=== PATIENT | male | born 1940 | race Caucasian/White ===

== ENCOUNTER 2021-02-20 02:42 | Emergency (ER) | payer MEDICARE ==
[~2021-02-20] VITALS: Ht 185.4 cm; Wt 70.9 kg
[2021-02-20 02:49] VITALS: BP 130/90
[2021-02-20] MEDS ORDERED: acetaminophen 325mg tablet PO ONE (04:45)
[2021-02-20] MEDS ORDERED: ONDA4TAB6 PO (05:14)
[2021-02-20] MEDS ORDERED: HYDR-3964 PO (05:14)
== END 2021-02-20 11:58 | disposition home or self-care (01) ==
LOC: ER 02:43
DX: S62.102A Fracture of unspecified carpal bone, left wrist, initial encounter for closed fracture (principal); S52.125A Nondisplaced fracture of head of left radius, initial encounter for closed fracture; Z79.899 Other long term (current) drug therapy; W01.0XXA Fall on same level from slipping, tripping and stumbling without subsequent striking against object, initial encounter; Y93.89 Activity, other specified; Y92.89 Other specified places as the place of occurrence of the external cause; Y99.8 Other external cause status
CPT/HCPCS: 29505; 73080; 73110; 99284

== ENCOUNTER 2023-01-20 09:37 | Day surgery (SDC) | payer MEDICARE ==
[2023-01-20] VITALS (12 sets, daily range): BP systolic 135–162; BP diastolic 80–107; PULSE 60–68; RESP 8–16; TEMP 97.9; O2SAT 97–100
[~2023-01-20] VITALS: Ht 180.3 cm; Wt 87.5 kg
[~2023-01-20 09:37] MED LIST: ONDA4TAB6 PO
[2023-01-20] MEDS ORDERED: fentaNYL/PF 50MCG/1 ML 2ML syringe IV ONE (10:10)
[2023-01-20] MEDS ORDERED: MIDAZolam 1mg/ml 10ml vial IV ONE (10:10)
[2023-01-20] MEDS ORDERED: normal saline 1000ml 1,000 ML IV SCH (10:10)
== END 2023-01-20 14:30 | disposition home or self-care (01) ==
LOC: SSTAY O 09:37
PROVIDERS: ATTEND Student in an Organized Health Care Education/Training Program
DX: I48.91 Unspecified atrial fibrillation (principal); I34.0 Nonrheumatic mitral (valve) insufficiency; Z79.01 Long term (current) use of anticoagulants; Z79.899 Other long term (current) drug therapy
CPT/HCPCS: 93312; 93325; 94760; J2250; J3010; J7030; A4620

== ENCOUNTER 2023-02-20 06:17 | Inpatient (IN) | payer MEDICARE ==
[2023-02-14 11:04] LABS: BASOPHILS # (AUTO) 0.1 X10'3 (0-0.2); BASOPHILS % (AUTO) 0.8 % (0-1); EOSINOPHILS # (AUTO) 0.1 X10'3 (0-0.9); LYMPHOCYTES # (AUTO) 1.6 X10'3 (1.1-4.8); MEAN CORPUSCULAR HGB CONC 33.6 g/dL (33.0-36.5); MEAN CORPUSCULAR VOLUME 92.2 FL (78-98); MEAN PLATELET VOLUME 8.3 FL (7.4-10.4); MONOCYTES # (AUTO) 0.6 X10'3 (0-0.9); MONOCYTES % (AUTO) 7.7 % (2-12); NEUTROPHILS % (AUTO) 67.5 % (42-75); PRE OP HEMATOCRIT 46.4 % (42.0-52.0); PRE OP HEMOGLOBIN 15.6 g/dL (14.0-17.9); PRE OP PLATELET COUNT 185 X10'3 (140-440); PRE OP WHITE BLOOD COUNT 7.5 10'3 (4.8-10.8); RED BLOOD COUNT 5.03 X10'6 (4.70-6.10); RED CELL DISTRIBUTION WIDTH 13.4 % (11.5-14.5)
[2023-02-14 11:07] LABS: BILIRUBIN,URINE NEGATIVE (Neg); CLARITY,URINE CLEAR (Clear); COLOR,URINE YELLOW (Yellow); GLUCOSE, URINE NEGATIVE (Neg); KETONES,URINE NEGATIVE (Neg); LEUKOCYTE ESTERASE ,URINE NEGATIVE (Neg); NITRITES, URINE NEGATIVE (Neg); OCCULT BLOOD,URINE TRACE-INTACT (Neg); PROTEIN,URINE NEGATIVE (Neg); UROBILINOGEN,URINE 0.2 E.U/dL (0.2-1.0)
[2023-02-14 11:10] LABS: UA COLLECTION TYPE VOIDED
[2023-02-14 11:15] LABS: BACTERIA,URINE FEW /HPF (Neg); MUCUS STRANDS NONE SEEN /LPF (Neg); RBC,URINE 0-2 /HPF (0-2); SQUAMOUS EPITHELIAL CELL,UR NONE SEEN /LPF (FEW); WBC,URINE 0-4 /HPF (0-4)
[2023-02-14 11:16] LABS: PRE OP INR 1.1 INR; PRE OP PROTIME 11.3 SECONDS (9.0-12.0)
[2023-02-14 11:29] LABS: ALBUMIN 3.4 G/DL (3.4-5.0); ALBUMIN/GLOBULIN RATIO 1.1 (1.1-1.5); ALKALINE PHOSPHATASE 95 IU/L (46-116); BLOOD UREA NITROGEN 27 MG/DL (7-18); BUN/CREATININE RATIO 29.7 (10.0-20.0); CALCIUM 9.5 MG/DL (8.5-10.1); CHLORIDE 108 MMOL/L (99-107); CREATININE 0.91 MG/DL (0.60-1.10); PRE OP ALT 20 U/L (30-65); PRE OP ANION GAP 6 (8-16); PRE OP AST 23 U/L (10-37); PRE OP BILIRUB, TOTAL 0.5 MG/DL (0.0-1.0); PRE OP GLUCOSE 101 MG/DL (70-104); PRE OP POTASSIUM 4.2 MMOL/L (3.4-5.1); PRE OP SODIUM 144 MMOL/L (135-145); TOTAL CARBON DIOXIDE 30.4 MMOL/L (24-32); TOTAL PROTEIN 6.4 G/DL (6.4-8.2); eGFR 80 ML/MIN
[~2023-02-20] VITALS: Ht 180.3 cm; Wt 85.5 kg
[2023-02-20] VITALS (14 sets, daily range): BP systolic 98–170; BP diastolic 65–96; PULSE 57–95; RESP 8–20; TEMP 97.3–97.7; O2SAT 91–100
[~2023-02-20 06:17] MED LIST changes: +APIX5TAB3 PO; +DOXY-225 PO; -ONDA4TAB6 PO; +cefazolin 2gm/D5W 100mL 100 ML IV ONE; +famotidine 20mg tablet PO ONE; +ondansetron/PF 4mg/2ml inj IV PRN; +ringers solution, lacted 1,000 ML IV SCH; +vancomycin 1,500 MG in NS 300ml IV soln IV ONE
[2023-02-20] MEDS ORDERED: hydrALAZINE 20mg/ml inj. IV PRN ×2 (07:40→15:00)
[2023-02-20] MEDS ORDERED: acetaminophen 1,000mg/100ml IV 100 ML IV PRN (07:40)
[2023-02-20] MEDS ORDERED: morphine 2 MG/ML inj. syringe IV PRN (07:40)
[2023-02-20] MEDS ORDERED: meperidine/PF 25mg/ml syringe IV PRN ×3 (07:40)
[2023-02-20] MEDS ORDERED: labetalol 20mg/4ml (5mg/ml) syringe IV PRN ×2 (07:40→15:00)
[2023-02-20] MEDS ORDERED: ondansetron/PF 4mg/2ml inj IV PRN ×2 (07:40→15:00)
[2023-02-20] MEDS ORDERED: ringers solution, lacted 1,000 ML IV SCH (07:40)
[2023-02-20] MEDS ORDERED: proCHLORperazine 10 MG/2 ml inj IV PRN ×2 (07:40→15:00)
[2023-02-20] MEDS ORDERED: morphine 4 MG/ML inj SYRINge IV PRN (07:40)
[2023-02-20] MEDS ORDERED: LIDOcaine 1% (10mg/ml) 2ml vial ONE (11:42)
[2023-02-20] MEDS ORDERED: protamine sulf. 10mg/ml inj. IV ONE (12:00)
[2023-02-20] MEDS ORDERED: iohexol 350MG/ML 100ml bottle IV ONE ×2 (12:01→14:05)
[2023-02-20] MEDS ORDERED: sevoflurane 250ml liquid IH ONE (12:08)
[2023-02-20] MEDS ORDERED: protamine sulfate 10mg/ml inj. ONE (12:14)
[2023-02-20] MEDS ORDERED: fentaNYL/PF 50MCG/1 ML 2ML syringe ONE ×2 (12:16→13:04)
[2023-02-20] MEDS ORDERED: midazolam 1 mg/ML 2ml injection ONE (12:17)
[2023-02-20] MEDS ORDERED: propofol inj 20 ML IV ONE (12:30)
[2023-02-20] MEDS ORDERED: rocuronium 10mg/ml inj IV ONE (12:30)
[2023-02-20] MEDS ORDERED: LIDOcaine 2% (20mg/ml) 5ml vial ONE (12:30)
[2023-02-20] MEDS ORDERED: heparin 1,000unit/ml 10ml vial 0 ML ONE (12:34)
[2023-02-20] MEDS ORDERED: ondansetron/PF 4mg/2ml inj ONE (12:40)
[2023-02-20] MEDS ORDERED: heparin 1,000unit/ml 10ml vial 10 ML ONE ×2 (12:40→13:31)
[2023-02-20] MEDS ORDERED: dexamethasone sod phosphate 4mg/ml inj. ONE (12:40)
[2023-02-20] MEDS ORDERED: ePHEDrine 50MG/ML INJ. ONE (13:17)
[2023-02-20] MEDS ORDERED: 0.9 % SODIUM CHLORIDE 10 ML VIAL ONE (13:17)
[2023-02-20] MEDS ORDERED: heparin 1,000 UNITS/NS 500ml 500 ML ONE (13:28)
[2023-02-20] MEDS ORDERED: glycopyrrolate 0.2mg/ml inj ONE (14:50)
[2023-02-20] MEDS ORDERED: neostigmine methylsulfate 1 MG/ML 10ml vial ONE (14:50)
[2023-02-20] MEDS ORDERED: docusate sod 100mg capsule PO PRN (15:00)
[2023-02-20] MEDS ORDERED: magnesium 4gm in 100ml NS 100 ML IV PRN (15:00)
[2023-02-20] MEDS ORDERED: diphenhydrAMINE 25mg capsule PO PRN (15:00)
[2023-02-20] MEDS ORDERED: acetaminophen 325mg tablet PO PRN (15:00)
[2023-02-20] MEDS ORDERED: potassium Cl 20mEq/100mL bag 100 ML IV PRN (15:00)
[2023-02-20] MEDS ORDERED: normal saline 1000ml 1,000 ML IV SCH (15:00)
[2023-02-20] MEDS ORDERED: potassium Cl 40MEQ/270ML bag 250 ML IV PRN (15:00)
[2023-02-20] MEDS ORDERED: potassium Cl 40MEQ/1/2NS 520ml 520 ML IV PRN (15:00)
[2023-02-20] MEDS ORDERED: potassium CL 10mEq/100ml bag 100 ML IV PRN (15:00)
[2023-02-20] MEDS ORDERED: pantoprazole 40mg Tablet.DR PO PRN (15:00)
[2023-02-20] MEDS ORDERED: ALPRAZolam 0.25mg tablet PO PRN (15:00)
[2023-02-20] MEDS ORDERED: potassium Cl 20 mEq SR tablet PO PRN (15:00)
[2023-02-20] MEDS ORDERED: magnesium 2GM in 50ml NS 50 ML IV PRN (15:00)
--- NOTE | 2023-02-20 15:07 | NUR ---
Received from OR via BED, accompanied by Anesthesiologist DR. CASTILLO and report given by Anesthesiologist AND OR NURSE. PT ARRIVED DROWSY BUT ABLE TO RESPOND TO VERBAL STIMULI ON 6 L OF 02 VIA MASK. VSS. PT HAS 18 G IV TO RIGHT FOREARM AND ART LINE TO RIGHT WRIST AND PRESSURE DEVICE INTACT. PT HAS DRESSING TO R GROIN THAT IS C/D/I, NO SWELLING OR BLEEDING NOTED. NEURO ASSESSMENT COMPLETED. PUSH, PULL, INCOMING FREIGHT CLERK, SMILE ALL WITHIN NORMAL LIMITS. BILATERAL PEDAL PULSES STRONG. VSS. WILL CONTINUE TO MONITOR AND RECHECK GROIN SITES. Addendum: 02/20/23 at 1525 by Juarez Lira RN Amended: Links added.
--- NOTE | 2023-02-20 15:35 | NUR ---
PULLED RIGHT ARTLINE. HEMOSTASIS OBTAINED AFTER 5 MINUTES. NO S/S OF HEMATOMA OR BLEEDING AT THIS TIME. APPLIED DRESSING ON RIGHT WRIST. PATIENT TOLERATED PROCEDURE WELL. NO S/S OF DISTRESS AT THIS TIME. Addendum: 02/20/23 at 1549 by Juarez Lira RN Amended: Links added.
--- NOTE | 2023-02-20 15:55 | NUR ---
Patient in room PAS IN 900. I have received report from Gurmeet TIMMONS and had the opportunity to ask questions and assume patient care.
[2023-02-20] MEDS ORDERED: sod chloride 0.9% 10ml flush syringe IV SCH (16:00)
--- NOTE | 2023-02-20 16:00 | NUR ---
TURNED STOPCOCK OPEN AND NO BLOOD OOZING FROM RIGHT GROIN SITE. DISCONTINUED FIGURE8 DRESSING AND APPLIED GAUZE AND TEGADERM. NO S/S OF BLEEDING OR HEMATOMA AT THIS TIME. WILL KEEP MONITORING.
--- NOTE | 2023-02-20 16:27 | NUR ---
PATIENT HAS MET ALL CRITERIA FOR TRANSFER TO PCU FLOOR. VSS. DRESSINGS INTACT. BED LOW, CALL LIGHT PRESENT AND 2 RAILS UP. RN PRESENT TO ACCEPT CARE OF PATIENT AND REPORT HAS BEEN CALLED. ALL QUESTIONS ANSWERED TO ACCEPTING RN. Addendum: 02/20/23 at 1633 by Juarez Lira RN Amended: Links added.
--- NOTE | 2023-02-20 18:18 | NUR ---
Patient in room PCU 3026. I have received report from clemente damon and had the opportunity to ask questions and assume patient care.
--- NOTE | 2023-02-20 18:27 | NUR ---
Problems reprioritized. Patient report given, questions answered & plan of care reviewed with Martha TERRY.
[2023-02-20] MEDS: apixaban 5mg tablet PO SCH (20:02)
[2023-02-21 02:00] VITALS: BP 99/64; PULSE 84; RESP 14; TEMP 97.1; O2SAT 91
--- NOTE | 2023-02-21 06:04 | NUR ---
FENCE SUPERVISOR documentation: I have reviewed and agree with all interventions, assessments performed and documented by Tammie. Addendum: 02/21/23 at 0604 by Rosa Keene RN Amended: Links added.
[2023-02-21 06:22] LABS: BASOPHILS % (AUTO) 0.3 % (0-1); EOSINOPHILS % (AUTO) 0.1 % (0-6); HEMATOCRIT 41.6 % (42.0-52.0); HEMOGLOBIN 14.1 g/dl (14.0-17.9); LYMPHOCYTES # (AUTO) 1.3 X10'3 (1.1-4.8); LYMPHOCYTES % (AUTO) 11.4 % (21-51); MEAN CORPUSCULAR HEMOGLOBIN 31.2 PG (27.0-31.0); MEAN CORPUSCULAR HGB CONC 33.9 g/dL (33.0-36.5); MEAN CORPUSCULAR VOLUME 92.1 FL (78-98); MEAN PLATELET VOLUME 8.3 FL (7.4-10.4); MONOCYTES # (AUTO) 0.9 X10'3 (0-0.9); MONOCYTES % (AUTO) 8.4 % (2-12); NEUTROPHILS # (AUTO) 8.9 X10'3 (1.8-7.7); NEUTROPHILS % (AUTO) 79.8 % (42-75); PLATELET COUNT 167 X10'3 (140-440); RED BLOOD COUNT 4.52 X10'6 (4.70-6.10); RED CELL DISTRIBUTION WIDTH 13.2 % (11.5-14.5); WHITE BLOOD COUNT 11.1 X10'3 (4.5-11.0)
[2023-02-21 06:25] LABS: INR 1.1 INR; PROTHROMBIN TIME 11.9 SECONDS (9.0-12.0)
--- NOTE | 2023-02-21 06:31 | NUR ---
Problems reprioritized. Patient report given, questions answered & plan of care reviewed with robe damon.
[2023-02-21 06:46] LABS: ALANINE AMINOTRANSFERASE 18 U/L (12-78); ALBUMIN 2.9 G/DL (3.4-5.0); ALBUMIN/GLOBULIN RATIO 1.1 (1.1-1.5); ALKALINE PHOSPHATASE 77 IU/L (46-116); ANION GAP 4 (8-16); ASPARTATE AMINO TRANSFERASE 21 U/L (10-37); BILIRUBIN,TOTAL 0.7 MG/DL (0.1-1.0); BLOOD UREA NITROGEN 22 MG/DL (7-18); BUN/CREATININE RATIO 19.8 (10.0-20.0); CALCIUM 8.8 MG/DL (8.5-10.1); CHLORIDE 108 MMOL/L (99-107); CREATININE 1.11 MG/DL (0.60-1.10); GLUCOSE 125 MG/DL (70-104); MAGNESIUM 1.6 MG/DL (1.5-2.4); PRO BRAIN NATRIURETIC PEPTIDE 390 PG/ML (0-450); SODIUM 141 MMOL/L (135-145); TOTAL CARBON DIOXIDE 28.8 MMOL/L (24-32); TOTAL PROTEIN 5.5 G/DL (6.4-8.2); eCRCL 57 ML/MIN; eGFR 64 ML/MIN
[2023-02-21 07:00] VITALS: BP_SYST 0; BP_SYST 133; BP_DIAS 85; PULSE 68; RESP 16; TEMP 97.4; O2SAT 96
[2023-02-21] MEDS: apixaban 5mg tablet PO SCH (08:00)
--- NOTE | 2023-02-21 08:55 | NUR ---
PATIENT WALKED 300FT NO COMPLICATIONS . HR STAYED UNDER 100. NO NEED FOR O2 . PATIENT TOLERATED IT WELL. GROIN SITE DRESSING IS CDI, NO HEMATOMA, NO BRUISING, NO ISSUES NOTED. PERIPHERAL PULSES AND SENSATION INTACT.
[2023-02-21 09:08] VITALS: RESP 16; O2SAT 96
--- NOTE | 2023-02-21 09:56 | NUR ---
REPORT GIVEN TO JUAN TIMMONS. PATIENT IS DOING GREAT AND READY TO GO HOME PENDING EKG AND ECHO REVIEW
--- NOTE | 2023-02-21 12:27 | NUR ---
PATIENT WAS DC TO HOME . PIV WAS REMOVE WITH CANNULA INTACT. NO NEW RX . DC INSTRUCTIONS AND WARNING S/S WERE DISCUSSED WITH THE PATIENT AND HE VERBALIZED UNDERSTANDING. ALL QUESTIONS WERE ANSWERED TO SATISFACTION. PATIENT WAS WHEELED TO FRONT OF HOSPITAL AND GOT INTO PRIVATE VEHICLE WITH FRIEND PATIENT WAS ALERT, ORIENTED AND APPROPRIATE AT TIME OF DC.
== END 2023-02-21 12:20 | disposition home or self-care (01) | DRG 274 ==
LOC: PAS IN 06:17 → PCU 3S 16:24
PROVIDERS: ADMIT Student in an Organized Health Care Education/Training Program; ATTEND Student in an Organized Health Care Education/Training Program
PROC: B24BZZ4 Ultrasonography of Heart with Aorta, Transesophageal (ICD-10-PCS; 2023-02-20)
PROC: B44FZZZ Ultrasonography of Right Lower Extremity Arteries (ICD-10-PCS; 2023-02-20)
PROC: 4A133B1 Monitoring of Arterial Pressure, Peripheral, Percutaneous Approach (ICD-10-PCS; 2023-02-20)
PROC: 02L73DK Occlusion of Left Atrial Appendage with Intraluminal Device, Percutaneous Approach (ICD-10-PCS; principal; 2023-02-20 12:08)
DX: I48.0 Paroxysmal atrial fibrillation (principal); Z00.6 Encounter for examination for normal comparison and control in clinical research program; I44.0 Atrioventricular block, first degree; Z79.01 Long term (current) use of anticoagulants
CPT/HCPCS: 33340; 36415; 71045; 71046; 76937; 80053; 81001; 82948; 83735; 83880; 85025; 85347; 85610; 85730; 86885; 86900; 86901; 86920; 87081; 93005; 93308; 93312; 93325; A4618; A6258; A6449; C1760; C1889; C1893; C1894; G0378; J0360; J0690; J1100; J1644; J2250; J2405; J2704; J2710; J2720; J3010; J3370; J3490; J7040; J7120; Q9967

== ENCOUNTER 2023-04-03 07:11 | Outpatient (CLI) | payer MEDICARE ==
[~2023-04-03 07:11] MED LIST changes: -cefazolin 2gm/D5W 100mL 100 ML IV ONE; -famotidine 20mg tablet PO ONE; -ondansetron/PF 4mg/2ml inj IV PRN; -ringers solution, lacted 1,000 ML IV SCH; -vancomycin 1,500 MG in NS 300ml IV soln IV ONE
[2023-04-03 07:40] LABS: BASOPHILS % (AUTO) 0.8 % (0-1); EOSINOPHILS # (AUTO) 0.2 X10'3 (0-0.9); EOSINOPHILS % (AUTO) 3.6 % (0-6); HEMATOCRIT 45.9 % (42.0-52.0); HEMOGLOBIN 15.8 g/dl (14.0-17.9); LYMPHOCYTES # (AUTO) 1.8 X10'3 (1.1-4.8); LYMPHOCYTES % (AUTO) 29.1 % (21-51); MEAN CORPUSCULAR HEMOGLOBIN 31.2 PG (27.0-31.0); MEAN CORPUSCULAR HGB CONC 34.3 g/dL (33.0-36.5); MONOCYTES # (AUTO) 0.5 X10'3 (0-0.9); MONOCYTES % (AUTO) 8.6 % (2-12); NEUTROPHILS # (AUTO) 3.6 X10'3 (1.8-7.7); NEUTROPHILS % (AUTO) 57.9 % (42-75); PLATELET COUNT 201 X10'3 (140-440); RED BLOOD COUNT 5.05 X10'6 (4.70-6.10); RED CELL DISTRIBUTION WIDTH 13.3 % (11.5-14.5); WHITE BLOOD COUNT 6.3 X10'3 (4.5-11.0)
[2023-04-03 07:51] LABS: APTT 32 SECONDS (22-32); PROTHROMBIN TIME 11.2 SECONDS (9.0-12.0)
[2023-04-03 07:57] LABS: ALANINE AMINOTRANSFERASE 25 U/L (12-78); ALBUMIN 3.4 G/DL (3.4-5.0); ALKALINE PHOSPHATASE 112 IU/L (46-116); ANION GAP 7 (8-16); ASPARTATE AMINO TRANSFERASE 29 U/L (10-37); BILIRUBIN,TOTAL 0.5 MG/DL (0.1-1.0); BLOOD UREA NITROGEN 22 MG/DL (7-18); CALCIUM 9.4 MG/DL (8.5-10.1); CHLORIDE 107 MMOL/L (99-107); GLUCOSE 110 MG/DL (70-104); POTASSIUM 3.9 MMOL/L (3.5-5.1); SODIUM 139 MMOL/L (135-145); TOTAL CARBON DIOXIDE 25.5 MMOL/L (24-32); TOTAL PROTEIN 6.7 G/DL (6.4-8.2); eGFR 72 ML/MIN
[2023-04-03] MEDS ORDERED: iohexol 350MG/ML 100ml bottle IV ONE (08:24)
== END 2023-04-03 23:59 | disposition home or self-care (01) ==
LOC: RAD 07:11
PROVIDERS: ATTEND Student in an Organized Health Care Education/Training Program
DX: T82.867A Thrombosis due to cardiac prosthetic devices, implants and grafts, initial encounter (principal); I48.91 Unspecified atrial fibrillation; I25.10 Atherosclerotic heart disease of native coronary artery without angina pectoris; K44.9 Diaphragmatic hernia without obstruction or gangrene; Z95.818 Presence of other cardiac implants and grafts; Y84.8 Other medical procedures as the cause of abnormal reaction of the patient, or of later complication, without mention of misadventure at the time of the procedure; Y92.89 Other specified places as the place of occurrence of the external cause
CPT/HCPCS: 36415; 75572; 80053; 85025; 85610; 85730; J3490; Q9967